=== PATIENT | female | born 1980 | race African-American/Black ===

== ENCOUNTER 2018-07-19 08:27 | Emergency (ER) | payer MEDICAID, OTHER ==
[~2018-07-19] VITALS: Ht 188 cm; Wt 69.9 kg
[2018-07-19 08:51] VITALS: BP 118/77
[2018-07-19] MEDS ORDERED: SULF1TAB24 PO (09:02)
--- NOTE | 2018-07-19 09:04 | PHYS DOC ---
Past Medical History Past Medical History: No Pertinent History Past Surgical History: Additional Information: 6 cigarettes daily Alcohol Use: None Drug Use: None Adult General Chief Complaint Chief Complaint: ABSCESS HPI HPI Patient is a 37 year old female who presents with an abscess to her left axilla �2 weeks. She states that she has been using hot compresses and salt water to try and draw it to a head. She states that nothing has helped and she has been unable to give the abscess to drain. She denies fever, nausea or vomiting. Review of Systems Review of Systems Constitutional: Denies fever or chills [] Respiratory: Denies cough or shortness of breath [] Cardiovascular: No additional information not addressed in HPI [] GI: Denies abdominal pain, nausea, vomiting, bloody stools or diarrhea [] : Denies dysuria or hematuria [] Musculoskeletal: Denies back pain or joint pain [] Integument: See history of present illness Neurologic: Denies headache, focal weakness or sensory changes [] Endocrine: Denies polyuria or polydipsia [] All other systems were reviewed and found to be within normal limits, except as documented in this note. Allergies Allergies Allergies Coded Allergies Type Severity Reaction Last Updated Verified No Known Drug Allergies 07/19/18 No Physical Exam Physical Exam Constitutional: Well developed, well nourished, no acute distress, non-toxic appearance. [] Cardiovascular:Heart rate regular rhythm, no murmur [] Lungs & Thorax: Bilateral breath sounds clear to auscultation [] Abdomen: Bowel sounds normal, soft, no tenderness, no masses, no pulsatile masses. [] Skin: There is a 1 cm in diameter abscess to the left axilla with a 0.5 cm papule that appears to be a newly forming abscess below it, there is induration with no fluctuance Back: No tenderness, no CVA tenderness. [] Extremities: No tenderness, no cyanosis, no clubbing, ROM intact, no edema. [] Neurologic: Alert and oriented X 3, normal motor function, normal sensory function, no focal deficits noted. [] Psychologic: Affect normal, judgement normal, mood normal. [] Current Patient Data Vital Signs Vital Signs Date Time Temp Pulse Resp B/P (MAP) Pulse Ox O2 Delivery O2 Flow Rate FiO2 07/19/18 08:51 98.5 85 18 118/77 (91) 97 Room Air 98.5 EKG EKG [] Radiology/Procedures Radiology/Procedures [] Course & Med Decision Making Course & Med Decision Making Pertinent Labs and Imaging studies reviewed. (See chart for details) [] Dragon Disclaimer Dragon Disclaimer This electronic medical record was generated, in whole or in part, using a voice recognition dictation system. Departure Departure Impression: Primary Impression: Abscess Disposition: HOME, SELF-CARE Condition: STABLE Patient Instructions: Abscess Additional Instructions: Take the medication as directed. Follow-up with your primary care provider in one week if not improving or return to the emergency department if worsening. Continue to do the hot compresses several times daily. Scripts Sulfamethoxazole/Trimethoprim (BACTRIM DS TABLET) 1 Each Tablet 1 TAB PO BID for abscess, #20 TAB Prov: GALO COLÓN APRN 07/19/18 GALO COLÓN APRN Jul 19, 2018 09:04
== END 2018-07-19 09:14 | disposition home or self-care (01) ==
LOC: ER 08:27
DX: L02.412 Cutaneous abscess of left axilla (principal); F17.210 Nicotine dependence, cigarettes, uncomplicated
CPT/HCPCS: 99283

== ENCOUNTER 2018-09-20 10:07 | Emergency (ER) | payer OTHER ==
[~2018-09-20] VITALS: Ht 188 cm; Wt 71.2 kg
[~2018-09-20 10:07] MED LIST: SULF1TAB24 PO
--- NOTE | 2018-09-20 11:58 | RAD ---
CHEST PA LATERAL Clinical indications: PT STATES SHE DEVELOPED A NAGGING COUGH LAST WEEK. STILL HAS AND BEGAN COUGHING UP BLOOD. COMPARISON: None available. Findings: Pectus deformity is seen. This results in poor visualization of the right heart border. No acute lung infiltrate or pleural effusion or pulmonary edema or lung mass or pneumothorax is seen. The heart size, pulmonary vasculature, mediastinum and both amber are unremarkable. The osseous structures appear intact. Impression: No acute radiographic abnormality is seen. Electronically signed by: Juan Pablo Chen MD (09/20/2018 11:55 AM) [facility]
--- NOTE | 2018-09-20 12:16 | PHYS DOC ---
Past Medical History Past Medical History: No Pertinent History Past Surgical History: , Tubal ligation Additional Information: 6 cigarettes daily Alcohol Use: None Drug Use: None Adult General Chief Complaint Chief Complaint: COUGH HPI HPI Patient is a 37 year old female with history of smoking who presents to the ED today complaining of a productive cough and nasal congestion for week. Patient denies any fever. Review of Systems Review of Systems Constitutional: Denies fever or chills [] Eyes: Denies change in visual acuity, redness, or eye pain [] HENT: Reports nasal congestion, denies sore throat [] Respiratory: Reports cough, denies shortness of breath [] Cardiovascular: No additional information not addressed in HPI [] GI: Denies abdominal pain, nausea, vomiting, bloody stools or diarrhea [] : Denies dysuria or hematuria [] Musculoskeletal: Denies back pain or joint pain [] Integument: Denies rash or skin lesions [] Neurologic: Denies headache, focal weakness or sensory changes [] All other systems were reviewed and found to be within normal limits, except as documented in this note. Allergies Allergies Allergies Coded Allergies Type Severity Reaction Last Updated Verified No Known Drug Allergies 07/19/18 No Physical Exam Physical Exam Constitutional: Well developed, well nourished, no acute distress, non-toxic appearance. [] HENT: Normocephalic, atraumatic, bilateral external ears normal, oropharynx moist, no oral exudates, nose normal. [] Eyes: PERRLA, EOMI, conjunctiva normal, no discharge. [] Neck: Normal range of motion, no tenderness, supple, no stridor. [] Cardiovascular:Heart rate regular rhythm, no murmur [] Lungs & Thorax: Bilateral breath sounds clear to auscultation [] Abdomen: Bowel sounds normal, soft, no tenderness, no masses, no pulsatile masses. [] Skin: Warm, dry, no erythema, no rash. [] Back: No tenderness, no CVA tenderness. [] Extremities: No tenderness, no cyanosis, no clubbing, ROM intact, no edema. [] Neurologic: Alert and oriented X 3, normal motor function, normal sensory function, no focal deficits noted. [] Psychologic: Affect normal, judgement normal, mood normal. [] Current Patient Data Vital Signs Vital Signs Date Time Temp Pulse Resp B/P (MAP) Pulse Ox O2 Delivery O2 Flow Rate FiO2 09/20/18 10:10 97.9 88 16 124/98 (107) 98 Room Air 97.9 EKG EKG [] Radiology/Procedures Radiology/Procedures []PROCEDURE: CHEST PA & LATERAL CHEST PA LATERAL Clinical indications: PT STATES SHE DEVELOPED A NAGGING COUGH LAST WEEK. STILL HAS AND BEGAN COUGHING UP BLOOD. COMPARISON: None available. Findings: Pectus deformity is seen. This results in poor visualization of the right heart border. No acute lung infiltrate or pleural effusion or pulmonary edema or lung mass or pneumothorax is seen. The heart size, pulmonary vasculature, mediastinum and both amber are unremarkable. The osseous structures appear intact. Impression: No acute radiographic abnormality is seen. Electronically signed by: Eitan Chen MD (09/20/2018 11:55 AM) [facility] DICTATED and SIGNED BY: EITAN CHEN MD DATE: 09/20/18 1156 Course & Med Decision Making Course & Med Decision Making Pertinent Labs and Imaging studies reviewed. (See chart for details) This is a 37-year-old female patient presenting to the ED today complaining of a productive cough and nasal congestion for one week. Chest x-ray interpreted by radiologist as negative for any acute findings. Patient's symptoms are likely viral. She is a smoker, she was encouraged to consider smoking cessation. She was discharged to home, follow up with primary care doctor in 1- 2 weeks. Dragon Disclaimer Dragon Disclaimer This electronic medical record was generated, in whole or in part, using a voice recognition dictation system. Departure Departure Impression: Primary Impression: Smoking addiction Additional Impressions: Acute bronchitis Upper respiratory infection Disposition: 01 HOME, SELF-CARE Condition: STABLE Referrals: UNKNOWN PCP NAME (PCP) Follow-up with your doctor in 1-2 weeks Patient Instructions: Acute Bronchitis, [id number], Smoking Cessation, Upper Respiratory Infection, Adult Additional Instructions: You were seen with symptoms consistent of upper respiratory infection as well as acute bronchitis. Consider smoking cessation. Use the prescribed medications as ordered. Follow-up with your doctor in 1-2 weeks. Scripts Benzonatate (TESSALON PERLE) 100 Mg Capsule 1 CAP PO TID, #30 CAP Prov: GAUDENCIOUNGAGENOVEVA [employer] TECHNICIAN 09/20/18 Albuterol Sulfate (VENTOLIN HFA INHALER) 18 Gm Hfa.aer.ad 2 PUFF INH Q4HRS for FOR ASTHMA, #1 INHALER 0 Refills Prov: GENOVEVA PAPPAS APRN 09/20/18 Prednisone (PREDNISONE) 50 Mg Tablet 1 TAB PO DAILY, #5 TAB Prov: GENOVEVA PAPPAS APRN 09/20/18 Problem Qualifiers Additional Impressions: Acute bronchitis Bronchitis organism: unspecified organism Qualified Codes: J20.9 - Acute bronchitis, unspecified Upper respiratory infection URI type: unspecified URI Qualified Codes: J06.9 - Acute upper respiratory infection, unspecified GENOVEVA PAPPAS APRN Sep 20, 2018 12:16
[2018-09-20] MEDS ORDERED: BENZ100C PO (12:18)
[2018-09-20] MEDS ORDERED: PRED50TA PO (12:18)
[2018-09-20] MEDS ORDERED: VENTOLIN HFA18 GM INH (12:18)
[2018-09-20 12:48] VITALS: BP 118/78
== END 2018-09-20 12:48 | disposition home or self-care (01) ==
LOC: ER 10:07
DX: J20.9 Acute bronchitis, unspecified (principal); J06.9 Acute upper respiratory infection, unspecified; F17.210 Nicotine dependence, cigarettes, uncomplicated; Z98.51 Tubal ligation status; Z98.890 Other specified postprocedural states
CPT/HCPCS: 71046; 99284